=== PATIENT | male | born 1990 | race Two or more races ===

== ENCOUNTER 2024-01-08 10:03 | Emergency (ER) | payer SELFPAY ==
[~2024-01-08] VITALS: Ht 175.3 cm; Wt 81.8 kg
[2024-01-08 10:29] VITALS: BP 127/88; PULSE 120; RESP 16; TEMP 98.7; O2SAT 98
== END 2024-01-08 11:09 ==
LOC: EDBD 10:03 → ER 10:03
DX: Z00.00 Encounter for general adult medical examination without abnormal findings (principal)